=== PATIENT | female | born 1930 | race African-American/Black ===

== ENCOUNTER 2017-03-11 15:56 | Emergency (ER) | payer MEDICARE, MEDICAID ==
--- NOTE | 2017-03-11 16:20 | ER Document Report ---
ED General - General Information source: Patient TRAVEL OUTSIDE OF THE [place] IN LAST 30 DAYS: No - HPI Onset: Just prior to arrival Onset/Duration: Sudden Quality of pain: No pain Severity: None Pain Level: Denies Associated symptoms: Other - See above Exacerbated by: Denies Relieved by: Denies Similar symptoms previously: No Recently seen / treated by doctor: No <GREGORIO JOHNSTON - Last Filed: 03/11/17 17:48> <ELIZABETH GARCIA - Last Filed: 03/11/17 20:45> - General Stated Complaint: ALTERED MENTAL STATUS Time Seen by Provider: 03/11/17 16:09 Notes: 87-year-old female that comes from the [facility] facility, DNR/DNI, who presents today with a 3 minute witnessed episode of change in mental status. Patient does have baseline dementia and is normally oriented only to person. There is been no report of obvious headaches, chest pain, abdominal pain, nausea, vomiting, fevers, or pain with urination. Patient is sitting up currently smiling denying any pain to any location. Patient is at baseline mental status according to my phone call with Maida alba nurse and with the EMS personnel. (GREGORIO JOHNSTON) - Related Data Allergies/Adverse Reactions: No Known Allergies Allergy (Verified 01/06/16 11:32) Past Medical History - General Information source: Patient - Social History Smoking Status: Unknown if Ever Smoked Cigarette use (# per day): No Chew tobacco use (# tins/day): No Smoking Education Provided: No Frequency of alcohol use: None Drug Abuse: None Family History: None - Past Medical History Cardiac Medical History: Reports: Hx Hypertension Neurological Medical History: Denies: Hx Seizures Musculoskeltal Medical History: Reports Hx Arthritis Psychiatric Medical History: Reports: Hx Dementia Past Surgical History: Denies: Hx Hysterectomy - Immunizations Hx Diphtheria, Pertussis, Tetanus Vaccination: - unknown <GREGORIO JOHNSTON - Last Filed: 03/11/17 17:48> Review of Systems - Review of Systems Constitutional: denies: Fever Cardiovascular: denies: Chest pain, Palpitations Respiratory: denies: Short of breath Gastrointestinal: denies: Abdominal pain, Vomiting Genitourinary: denies: Dysuria Musculoskeletal: denies: Leg swelling Skin: denies: Rash Neurological/Psychological: Other - no slurred speech -: Yes All other systems reviewed and negative <GREGORIO JOHNSTON - Last Filed: 03/11/17 17:48> Physical Exam - Vital signs Interpretation: Normal <GREGORIO JOHNSTON - Last Filed: 03/11/17 17:48> <ELIZABETH GARCIA - Last Filed: 03/11/17 20:45> - Vital signs Vitals: Pulse Ox 98 03/11/17 16:20 Notes: Reviewed vital signs and nursing note as charted by RN. CONSTITUTIONAL: Alert and oriented only to person. Well-appearing; well- nourished HEAD: Normocephalic; atraumatic EYES: PERRL; extraocular motions intact NECK: Supple without meningismus; no carotid bruits; non-tender; no cervical lymphadenopathy, no masses CARD: Regular rate and rhythm; no murmurs RESP: Normal chest excursion without splinting or tachypnea; breath sounds clear and equal bilaterally; no wheezes, no rhonchi, no rales ABD/GI: Normal bowel sounds; non-distended; soft, non-tender; no abdominal bruits or palpable masses BACK: The back appears normal and is non-tender to palpation, there is no CVA tenderness EXT: Normal ROM in all joints; non-tender to palpation; no cyanosis, no effusions, no edema SKIN: Normal color for age and race; warm; dry; good turgor; capillary refill < 2 seconds; no acute lesions noted NEURO: CN II through XII are intact. 5 out of 5 bilateral upper and lower extremity strength or sensation intact to light touch PSYCH: The patient's mood and manner are appropriate. Grooming and personal hygiene are appropriate. (GREGORIO JOHNSTON) Course - Laboratory Result Diagrams: 03/11/17 16:33 03/11/17 16:33 <GREGORIO JOHNSTON - Last Filed: 03/11/17 17:48> - Laboratory Result Diagrams: 03/11/17 16:33 03/11/17 18:19 - Diagnostic Test Radiology reviewed: Image reviewed, Reports reviewed - EKG Interpretation by Pr EKG shows normal: Sinus rhythm, [place], Intervals, QRS Complexes <ELIZABETH GARCIA - Last Filed: 03/11/17 20:45> - Re-evaluation Re-evalutation: 03/11/17 16:24 Given the above history and physical examination, in this very pleasant but disoriented patient, currently with no pain, no focal neurological deficits, with stable vital signs, I will order a CT scan of the head, urinalysis by catheterization, and a cardiac panel. If patient continues to look excellent and have no complaints, and the workup is unremarkable, I believe it is reasonable to discharge this patient back to the facility with strict return precautions and follow-up with the attending at that location. 03/11/17 17:31 EKG shows a heart rate of 90, normal sinus rhythm, possibly ectopic atrial pacemaker, LVH, no obvious ST elevation or depression, flattening T waves laterally. PACs present. Old EKG from 2016 shows less LVH, otherwise relatively unchanged. 03/11/17 17:48 CT scan of the head shows no acute abnormality. Chest x-ray shows normal heart, normal mediastinum, no fractures, normal lung cyr, no pneumothorax. (GREGORIO JOHNSTON) 03/11/17 18:36 Patient is noted to have a UTI, will be started on antibiotics cultures pending 03/11/17 20:44 Troponins have been trended out and have actually decreased. Patient is otherwise stable for discharge, I spoke with family member and they are happy with discharge home After performing a Medical Screening Examination, I estimate there is LOW risk for INTRACRANIAL HEMORRHAGE, ISCHEMIC CVA, MALIGNANT DYSRHYTHMIA, ACUTE CORONARY SYNDROME, MENINGITIS, PULMONARY EMBOLISM, or SEPSIS thus I consider the discharge disposition reasonable. I have reevaluated this patient multiple times and no significant life threatening changes are noted. The patient and I have discussed the diagnosis and risks, and we agree with discharging home with close follow-up with the understanding that symptoms and presentations can change. We also discussed returning to the Emergency Department immediately if new or worsening symptoms occur. We have discussed the symptoms which are most concerning (e.g., changing or worsening pain, weakness, vomiting, fever) that necessitate immediate return. (ELIZABETH GARCIA) - Vital Signs Vital signs: Temp Pulse Resp BP Pulse Ox 20 169/95 H 97 03/11/17 20:01 03/11/17 20:01 03/11/17 20:01 - Laboratory Laboratory results interpreted by me: 03/11/17 03/11/17 03/11/17 16:33 17:40 18:19 RDW 14.4 H Plt Count 125 L Sodium 145.4 H Potassium 5.1 H Carbon Dioxide 35 H BUN 33 H Creatinine 1.65 H Est GFR ( Amer) 36 L Est GFR (Non-Af Amer) 29 L Calcium 10.4 H Urine Nitrite POSITIVE H Discharge <GREGORIO JOHNSTON - Last Filed: 03/11/17 17:48> <ELIZABETH GARCIA - Last Filed: 03/11/17 20:45> - Discharge Clinical Impression: Weakness Condition: Stable Disposition: HOME, SELF-CARE Instructions: Weakness ([facility]) Referrals: LORNA TORRES MD [Primary Care Provider] - Follow up tomorrow
[2017-03-11 16:45] LABS: ABSOLUTE EOSINOPHILS # (AUTO) 0.1 10^3/uL (0.0-0.6); ABSOLUTE LYMPHOCYTES (AUTO) 1.4 10^3/uL (0.5-4.7); ABSOLUTE MONOCYTES (AUTO) 0.6 10^3/uL (0.1-1.4); ABSOLUTE NEUT (AUTO) 3.2 10^3/uL (1.7-8.2); BASOPHILS % (AUTO) 0.8 % (0-2); EOSINOPHILS % (AUTO) 2.6 % (0-6); HEMATOCRIT 38.7 % (36.0-47.0); HEMOGLOBIN 12.7 g/dL (12.0-15.5); HGB HCT DIFFERENCE -0.6; MEAN CORPUSCULAR HEMOGLOBIN 29.9 pg (27.0-33.4); MEAN CORPUSCULAR HGB CONC 32.9 g/dL (32.0-36.0); MEAN CORPUSCULAR VOLUME 91 fl (80-97); MONOCYTES % (AUTO) 11.7 % (3-13); RED BLOOD COUNT 4.25 10^6/uL (3.72-5.28); RED CELL DISTRIBUTION WIDTH 14.4 % (11.5-14.0); SEGMENTED NEUTROPHILS % (AUTO) 58.9 % (42-78); WHITE BLOOD COUNT 5.4 10^3/uL (4.0-10.5)
--- NOTE | 2017-03-11 17:25 | RADIOLOGY REPORT (SQ) ---
EXAM DESCRIPTION: CT HEAD WITHOUT COMPLETED DATE/TIME: 03/11/2017 5:09 pm REASON FOR STUDY: 17, Transient change in mental status COMPARISON: 01/09/2016 TECHNIQUE: Axial images acquired through the brain without intravenous contrast. Images reviewed wi th bone, brain and subdural windows. Images stored on PACS. All CT scanners at this facility use dose modulation, iterative reconstruction, and/or weight based d osing when appropriate to reduce radiation dose to as low as reasonably achievable (ALARA). [facility]: Dose Right [facility]: CareDose [facility]: Dose Right [facility]: Teradose 4D [facility]: TELOS RADIATION DOSE: Up-to-date CT equipment and radiation dose reduction techniques were employed. CTDIv ol: 64.6 mGy. DLP: 1034 mGy-cm.mGy. LIMITATIONS: None. FINDINGS: VENTRICLES: Prominent. CEREBRUM: No masses. No hemorrhage. No midline shift. Areas of low density in the white matter mos t likely due to chronic micro-vascular ischemic change. No evidence for acute infarction. CEREBELLUM: No masses. No hemorrhage. No alteration of density. No evidence for acute infarction. EXTRAAXIAL SPACES: Age-related involutional change. No fluid collections. No masses. ORBITS AND GLOBE: No intra- or extraconal masses. Normal contour of globe without masses. CALVARIUM: No fracture. PARANASAL SINUSES: No fluid or mucosal thickening. SOFT TISSUES: No mass or hematoma. OTHER: No other significant finding. IMPRESSION: NO ACUTE INTRACRANIAL PROCESS. NO SIGNIFICANT CHANGE FROM PRIOR STUDY. TECHNICAL DOCUMENTATION: JOB ID: [id number] Quality ID # [id number]: Final reports with documentation of one or more dose reduction techniques (e.g., Au tomated exposure control, adjustment of the mA and/or kV according to patient size, use of iterative reconstruction technique) 2010 [employer]- All Rights Reserved
--- NOTE | 2017-03-11 17:36 | RADIOLOGY REPORT (SQ) ---
EXAM DESCRIPTION: CHEST PA/LAT COMPLETED DATE/TIME: 03/11/2017 5:28 pm REASON FOR STUDY: 17, m[facility] COMPARISON: 01/13/2016 NUMBER OF VIEWS: Two view. TECHNIQUE: Frontal and lateral radiographic views of the chest acquired. LIMITATIONS: None. FINDINGS: LUNGS AND PLEURA: Stable volume loss left hemithorax with presumed scarring left lung apex . No new opacities, masses or pneumothorax. No pleural effusion. Attenuated blood vessels and flatte annalee armond-diaphragms. MEDIASTINUM AND HILAR STRUCTURES: No masses. No contour abnormalities. HEART AND VASCULAR STRUCTURES: Heart stable in size and contour. No evidence for failure. BONES: No acute findings. HARDWARE: None in the chest. OTHER: No other significant finding. IMPRESSION: NO ACUTE CARDIOPULMONARY PROCESS OR SIGNIFICANT CHANGE FROM PRIOR STUDY. TECHNICAL DOCUMENTATION: JOB ID: [id number] [employer]- All Rights Reserved
[2017-03-11 18:09] LABS: APPEARANCE,URINE CLEAR; BILIRUBIN,URINE NEGATIVE (NEGATIVE); GLUCOSE, URINE NEGATIVE (NEGATIVE); KETONES,URINE NEGATIVE (NEGATIVE); LEUKOCYTE ESTERASE,URINE NEGATIVE (NEGATIVE); NITRITE,URINE POSITIVE (NEGATIVE); PROTEIN,URINE NEGATIVE (NEGATIVE); URINE SPECIFIC GRAVITY 1.005; UROBILINOGEN,URINE NEGATIVE mg/dL (<2.0)
[2017-03-11] MEDS ORDERED: CEPHALEXIN 500 MG CAPSULE PO ONE (18:13)
[2017-03-11 18:50] LABS: ANION GAP 10 (5-19); BLOOD UREA NITROGEN 33 mg/dL (7-20); CALCIUM 10.4 mg/dL (8.4-10.2); CARBON DIOXIDE 35 mmol/L (22-30); CHLORIDE 100 mmol/L (98-107); CREATININE RESULT 1.65 mg/dL (0.52-1.25); GLUCOSE 109 mg/dL (75-110); POTASSIUM 5.1 mmol/L (3.6-5.0); SODIUM 145.4 mmol/L (137-145)
[2017-03-11 21:09] VITALS: BP 113/85
--- NOTE | 2017-03-12 00:09 | EKG REPORT ---
SEVERITY:- ABNORMAL ECG - PRECORDIAL LEADS MISPLACED SINUS RHYTHM ATRIAL PREMATURE COMPLEX LEFT ATRIAL ABNORMALITY LEFT VENTRICULAR HYPERTROPHY : Confirmed by: Chance Vee 12-Mar-2017 00:08:58
== END 2017-03-11 21:25 | disposition home or self-care (01) ==
LOC: ER 15:56
DX: R53.1 Weakness (principal); N39.0 Urinary tract infection, site not specified; F03.90 Unspecified dementia, unspecified severity, without behavioral disturbance, psychotic disturbance, mood disturbance, and anxiety; I10 Essential (primary) hypertension; I51.7 Cardiomegaly; I49.1 Atrial premature depolarization; Z66 Do not resuscitate
CPT/HCPCS: 93005; 99285; 51701; 36415; 87086; 85025; 87088; 80048; 81001; 84484; 87186; 71020; 70450; 93010; A9270

== ENCOUNTER 2017-07-23 20:45 | Inpatient (IN) | payer MEDICARE, MEDICAID ==
[2017-07-23] MEDS ORDERED: NORMAL SALINE 1000 ML 1,000 ML IV ONE (20:56)
--- NOTE | 2017-07-23 21:17 | ER Document Report ---
ED General - General Stated Complaint: FEVER Time Seen by Provider: 07/23/17 20:54 Cannot obtain history due to: Dementia Notes: Patient is an 87-year-old female who [facility] the local [facility] with concerns of fever and shortness of breath. The patient herself is severely demented, unable to provide meaningful history. Patient apparently had a recorded temperature of 103.6F. Tylenol was administered in route by EMS. Patient does have a history of similar presentations in the past secondary to pneumonia. TRAVEL OUTSIDE OF THE [place] IN LAST 30 DAYS: No - Related Data Allergies/Adverse Reactions: No Known Allergies Allergy (Verified 01/06/16 11:32) Home Medications: Current Home Medications Mirtazapine [Remeron] 7.5 mg PO QHS 07/23/17 [History] Omeprazole Magnesium [Prilosec Otc] 20 mg PO DAILY 07/23/17 [History] Past Medical History - General Information source: Transfer Record, [facility] Records, Outside Facility Records Cannot obtain history due to: Dementia - Social History Smoking Status: Unknown if Ever Smoked Lives with: Skilled Nursing Family History: Reviewed & Not Pertinent - Past Medical History Cardiac Medical History: Reports: Hx Hypertension Neurological Medical History: Denies: Hx Seizures Musculoskeltal Medical History: Reports Hx Arthritis Psychiatric Medical History: Reports: Hx Dementia Past Surgical History: Denies: Hx Hysterectomy - Immunizations Hx Diphtheria, Pertussis, Tetanus Vaccination: - unknown Review of Systems - Review of Systems -: Yes ROS unobtainable due to patient's medical condition Physical Exam - Vital signs Vitals: Resp Pulse Ox 25 H 99 07/23/17 21:04 07/23/17 21:04 Interpretation: Tachypneic Notes: PHYSICAL EXAMINATION: GENERAL: Frail, elderly, in no distress. HEAD: Atraumatic, normocephalic. EYES: Pupils equal round and reactive to light, extraocular movements intact, sclera anicteric, conjunctiva are normal. ENT: nares patent, oropharynx clear without exudates. Moderately dry mucous membranes. NECK: Normal range of motion, supple without lymphadenopathy LUNGS: Diffusely diminished breath on the left versus the right. No distress or tachypnea HEART: Regular rate and rhythm without murmurs ABDOMEN: Soft, nontender, normoactive bowel sounds. No guarding, no rebound. No masses appreciated. EXTREMITIES: Normal range of motion, no pitting or edema. No cyanosis. NEUROLOGICAL: No focal neurological deficits. Moves all extremities spontaneously and on command. PSYCH: Alert but not oriented to person, place or year. SKIN: Warm, Dry, normal turgor, no rashes or lesions noted. Course - Re-evaluation Re-evalutation: 07/23/17 21:48 Patient presents with fever without any localizing symptoms. She is severely demented, unable to provide any history. She is overall nontoxic in appearance. Chest x-ray seemed to show left-sided pneumonia. Labs are otherwise unremarkable without any evidence of urinary tract infection. Patient is however hypoxic saturating 90% on room air without a baseline oxygen requirement. This further supports the diagnosis of a pneumonia. I have begun empiric treatment for this diagnosis with vancomycin, Zosyn given her healthcare setting - Vital Signs Vital signs: Temp Pulse Resp BP Pulse Ox 99.7 F 89 18 113/64 100 07/23/17 21:35 07/23/17 21:35 07/24/17 01:29 07/24/17 01:29 07/24/17 01:28 - Laboratory Result Diagrams: 07/23/17 21:01 07/23/17 21:01 Laboratory results interpreted by me: 07/23/17 07/23/17 21:01 21:01 WBC 14.1 H Hgb 11.1 L Hct 34.9 L MCHC 31.9 L Seg Neutrophils % 85.4 H Lymphocytes % 6.4 L Absolute Neutrophils 12.0 H Sodium 145.5 H Carbon Dioxide 32 H BUN 21 H Creatinine 1.45 H Est GFR ( Amer) 41 L Est GFR (Non-Af Amer) 34 L Glucose 137 H - Diagnostic Test Radiology reviewed: Image reviewed, Reports reviewed Radiology results interpreted by me: 07/24/17 00:10 Chest x-ray: Patient appears to have a left-sided pneumonia relative to prior xray Discharge - Discharge Clinical Impression: Hypoxemia Sepsis Qualifiers: Sepsis type: sepsis due to unspecified organism Qualified Code(s): A41.9 - Sepsis, unspecified organism Pneumonia Qualifiers: Pneumonia type: due to unspecified organism Laterality: left Lung location: unspecified part of lung Qualified Code(s): J18.9 - Pneumonia, unspecified organism Condition: Fair Disposition: ADMITTED INPATIENT Admitting Provider: [facility] Unit Admitted: Telemetry
[2017-07-23 21:22] LABS: ABSOLUTE LYMPHOCYTES (AUTO) 0.9 10^3/uL (0.5-4.7); ABSOLUTE MONOCYTES (AUTO) 1.1 10^3/uL (0.1-1.4); BASOPHILS % (AUTO) 0.2 % (0-2); HEMATOCRIT 34.9 % (36.0-47.0); HEMOGLOBIN 11.1 g/dL (12.0-15.5); LYMPHOCYTES % (AUTO) 6.4 % (13-45); MEAN CORPUSCULAR HEMOGLOBIN 28.7 pg (27.0-33.4); MEAN CORPUSCULAR HGB CONC 31.9 g/dL (32.0-36.0); MEAN CORPUSCULAR VOLUME 90 fl (80-97); PLATELET COUNT 180 10^3/uL (150-450); RED BLOOD COUNT 3.87 10^6/uL (3.72-5.28); SEGMENTED NEUTROPHILS % (AUTO) 85.4 % (42-78); TOTAL CELLS COUNTED % (AUTO) 100 %; WHITE BLOOD COUNT 14.1 10^3/uL (4.0-10.5)
[2017-07-23 21:36] LABS: APPEARANCE,URINE SLIGHTLY-CLOUDY; BILIRUBIN,URINE NEGATIVE (NEGATIVE); COLOR,URINE YELLOW; GLUCOSE, URINE NEGATIVE (NEGATIVE); KETONES,URINE NEGATIVE (NEGATIVE); LEUKOCYTE ESTERASE,URINE NEGATIVE (NEGATIVE); NITRITE,URINE NEGATIVE (NEGATIVE); PROTEIN,URINE NEGATIVE (NEGATIVE); UROBILINOGEN,URINE NEGATIVE mg/dL (<2.0)
[2017-07-23 21:40] LABS: ALANINE AMINOTRANSFERASE 18 U/L (9-52); ALBUMIN 3.5 g/dL (3.5-5.0); ALKALINE PHOSPHATASE 85 U/L (38-126); ANION GAP 10 (5-19); ASPARTATE AMINO TRANSFERASE 16 U/L (14-36); BILIRUBIN,DIRECT 0.2 mg/dL (0.0-0.4); BILIRUBIN,TOTAL 0.6 mg/dL (0.2-1.3); BLOOD UREA NITROGEN 21 mg/dL (7-20); CALCIUM 9.5 mg/dL (8.4-10.2); CARBON DIOXIDE 32 mmol/L (22-30); CHLORIDE 104 mmol/L (98-107); GLUCOSE 137 mg/dL (75-110); POTASSIUM 4.4 mmol/L (3.6-5.0); SODIUM 145.5 mmol/L (137-145); TOTAL PROTEIN 6.8 g/dL (6.3-8.2)
[2017-07-23 21:51] LABS: A TYPE INFLUENZA AG NEGATIVE (NEGATIVE); B INFLUENZA AG NEGATIVE (NEGATIVE)
[2017-07-23] MEDS ORDERED: VANCOMYCIN HCL INJ 1000 MG VIAL IV ONE (21:51)
[2017-07-23] MEDS ORDERED: PIPERACILLIN/TAZOBACTAM 3.375 GM VIAL IV ONE (21:51)
--- NOTE | 2017-07-23 22:11 | RADIOLOGY REPORT (SQ) ---
EXAM DESCRIPTION: CHEST SINGLE VIEW COMPLETED DATE/TIME: 07/23/2017 9:44 pm REASON FOR STUDY: fever COMPARISON: 03/11/2017 EXAM PARAMETERS: NUMBER OF VIEWS: One view. TECHNIQUE: Single frontal radiographic view of the chest acquired. RADIATION DOSE: NA LIMITATIONS: None. FINDINGS: LUNGS AND PLEURA: Re- demonstration of left hemithorax volume loss with elevation of the l eft hemidiaphragm. Left apical pleural thickening, stable. No new focal consolidation. No pleural effusion. MEDIASTINUM AND HILAR STRUCTURES: No masses. Contour normal. HEART AND VASCULAR STRUCTURES: Stable cardiomediastinal silhouette. No evidence for failure. BONES: No acute findings. HARDWARE: None in the chest. OTHER: No other significant finding. IMPRESSION: Stable radiographic appearance of the chest. No evidence of acute pulmonary process. TECHNICAL DOCUMENTATION: JOB ID: [id number] [employer]- All Rights Reserved
[2017-07-24] MEDS ORDERED: NORMAL SALINE 1000 ML 1,000 ML IV ONE (00:08)
[2017-07-24] MEDS ORDERED: IPRATROPIUM/ALBUTEROL 0.5-2.5 MG/3 ML AMPUL NEB PRN (00:12)
[2017-07-24] MEDS ORDERED: GUAIFENESIN SYRP 200 MG/10 ML UDC PO PRN (00:12)
[2017-07-24] MEDS: NORMAL SALINE 1000 ML 1,000 ML IV PRN ×3 (00:38→20:56)
[2017-07-24] MEDS: IPRATROPIUM/ALBUTEROL 0.5-2.5 MG/3 ML AMPUL NEB SCH ×4 (02:00→20:26)
[2017-07-24 05:05] LABS: ANION GAP 9 (5-19); BLOOD UREA NITROGEN 23 mg/dL (7-20); CALCIUM 8.7 mg/dL (8.4-10.2); CARBON DIOXIDE 26 mmol/L (22-30); CHLORIDE 111 mmol/L (98-107); GLUCOSE 109 mg/dL (75-110)
[2017-07-24 05:12] LABS: POTASSIUM 5.4 mmol/L (3.6-5.0)
[2017-07-24] MEDS: HEPARIN SOD (PORCINE) 5,000 UNIT/ML 1 ML SYRINGE SUBCUT SCH ×3 (05:50→22:50)
[2017-07-24] MEDS ORDERED: INFLUENZA ADLT QUAD (36MOS+) 2017-18 VAC 0.5 ML SYR IM PRN (05:55)
[2017-07-24] MEDS ORDERED: NORMAL SALINE 1000 ML 1,000 ML IV PRN (06:00)
[2017-07-24] MEDS ORDERED: LACTULOSE SYRUP 20 GM/30 ML UDCUP PO ONE (06:00)
--- NOTE | 2017-07-24 06:07 | PDOC H&P ---
History of Present Illness Admission Date/PCP: 07/24/17 00:30 OCTAVIO LARSEN MD Patient complains of: Fever and shortness of breath History of Present Illness: GEE ATWOOD is a 87 year old female who is a long-term residential resident with advanced dementia and hypertension unable to provide history. She is referred to the emergency room after found short of breath with a temperature of 103.6. In the emergency room she is nonverbal but her workup reveals a left-sided infiltrate suggestive of pneumonia, leukocytosis and hypotension. She started on empiric antibiotics and for the hospitalist for admission Past Medical History Cardiac Medical History: Reports: Hypertension Neurological Medical History: Denies: Seizures Musculoskeltal Medical History: Reports: Arthritis Psychiatric Medical History: Reports: Dementia Denies: Depression Past Surgical History Past Surgical History: Denies: Hysterectomy Social History Information Source: [facility] Records Lives with: [facility] Smoking Status: Unknown if Ever Smoked Frequency of Alcohol Use: None Hx Recreational Drug Use: No Hx Prescription Drug Abuse: No - Advance Directive Resuscitation Status: Do Not Resuscitate Family History Family History: Other - Unobtainable Parental Family History Reviewed: No - Unobtainable Children Family History Reviewed: No - Unobtainable Sibling(s) Family History Reviewed.: No Medication/Allergy Home Medications: Acetaminophen [Tylenol 325 mg Tablet] 650 mg PO Q4HP PRN #0 tablet 01/14/16 Furosemide [Lasix 40 mg Tablet] 40 mg PO DAILY #0 tablet 01/14/16 Memantine HCl [Namenda 10 mg Tablet] 10 mg PO DAILY #0 tablet 01/14/16 Multivitamins W-Iron [Flintstones Chewable Multivit W/Fe Tab] 2 tab PO DAILY #0 tab.chew 01/14/16 Potassium Chloride [Kaon-Cl 20 Meq/15 ml Udcup] 20 meq PO DAILY #0 udc 01/14/16 Mirtazapine [Remeron] 7.5 mg PO QHS 07/23/17 Omeprazole Magnesium [Prilosec Otc] 20 mg PO DAILY 07/23/17 Allergies/Adverse Reactions: No Known Allergies Allergy (Verified 01/06/16 11:32) Review of Systems ROS unobtainable: Due to mental status - Demented Physical Exam Vital Signs: Temp Pulse Resp BP Pulse Ox 97.9 F 76 16 100/50 L 100 07/24/17 05:23 07/24/17 05:27 07/24/17 05:23 07/24/17 05:23 07/24/17 05:23 Intake & Output 07/22/17 07/23/17 07/24/17 11:59 11:59 11:59 Weight 52.16 kg General appearance: PRESENT: mild distress, thin. ABSENT: cooperative Head exam: PRESENT: atraumatic, normocephalic Eye exam: PRESENT: conjunctiva pink, EOMI, PERRLA. ABSENT: scleral icterus Ear exam: PRESENT: normal external ear exam Mouth exam: PRESENT: moist, tongue midline Neck exam: ABSENT: carotid bruit, JVD, lymphadenopathy, thyromegaly Respiratory exam: PRESENT: accessory muscle use, prolonged expiratory phas, rales, retraction, rhonchi, tachypnea Cardiovascular exam: PRESENT: RRR. ABSENT: diastolic murmur, rubs, systolic murmur Pulses: PRESENT: normal dorsalis pedis pul Vascular exam: PRESENT: normal capillary refill GI/Abdominal exam: PRESENT: normal bowel sounds, soft. ABSENT: distended, guarding, mass, organolmegaly, rebound, tenderness Rectal exam: PRESENT: deferred Extremities exam: PRESENT: full ROM. ABSENT: calf tenderness, clubbing, pedal edema Neurological exam: PRESENT: altered Psychiatric exam: PRESENT: flat affect Skin exam: PRESENT: dry, intact, warm. ABSENT: cyanosis, rash Results Laboratory Results: 07/24/17 04:19 07/24/17 04:19 07/24/17 07/24/17 04:19 04:19 WBC Cancelled RBC Cancelled Hgb Cancelled Hct Cancelled MCV Cancelled MCH Cancelled MCHC Cancelled RDW Cancelled Plt Count Cancelled Seg Neutrophils % Cancelled Lymphocytes % Cancelled Monocytes % Cancelled Eosinophils % Cancelled Basophils % Cancelled Absolute Neutrophils Cancelled Absolute Lymphocytes Cancelled Absolute Monocytes Cancelled Absolute Eosinophils Cancelled Absolute Basophils Cancelled Sodium 146.0 H Potassium 5.4 H D Chloride 111 H Carbon Dioxide 26 Anion Gap 9 BUN 23 H Creatinine 1.41 H Est GFR ( Amer) 43 L Est GFR (Non-Af Amer) 35 L Glucose 109 Calcium 8.7 Impressions: Chest X-Ray 07/23/17 20:54 IMPRESSION: Stable radiographic appearance of the chest. No evidence of acute pulmonary process. Assessment & Plan - Diagnosis (1) Pneumonia Qualifiers: Pneumonia type: due to unspecified organism Laterality: left Lung location: unspecified part of lung Qualified Code(s): J18.9 - Pneumonia, unspecified organism Is this a current diagnosis for this admission?: Yes Plan: IMCU admission, pneumonia care set, albuterol and Atrovent empiric antibiotics and supplemental oxygen. Follow-up CBC and blood culture (2) Sepsis Qualifiers: Sepsis type: sepsis due to unspecified organism Qualified Code(s): A41.9 - Sepsis, unspecified organism Is this a current diagnosis for this admission?: Yes Plan: Secondary to #1 IV fluid challenge. Patient not a candidate for pressors given advanced dementia and DNR status. (3) Hyperkalemia Is this a current diagnosis for this admission?: Yes Plan: Trial lactulose follow-up chemistry (4) Hypoxemia Is this a current diagnosis for this admission?: Yes Plan: Supplemental oxygen, albuterol and Atrovent (5) Chronic kidney disease Is this a current diagnosis for this admission?: Yes Plan: Avoid nephrotoxic meds and doses reevaluate chemistry - Time Time Spent: 50 to 70 Minutes - Inpatient Certification Medical Necessity: Need Close Monitoring Due to Risk of Patient Decompensation
[2017-07-24] MEDS ORDERED: VANCOMYCIN HCL 0 MG in DEXTROSE 5%-WATER 250 ML IV NR (06:15)
[2017-07-24 06:54] LABS: HEMATOCRIT 33.6 % (36.0-47.0); HEMOGLOBIN 10.7 g/dL (12.0-15.5); MEAN CORPUSCULAR HEMOGLOBIN 28.9 pg (27.0-33.4); MEAN CORPUSCULAR HGB CONC 31.8 g/dL (32.0-36.0); MEAN CORPUSCULAR VOLUME 91 fl (80-97); PLATELET COUNT 149 10^3/uL (150-450); RED BLOOD COUNT 3.69 10^6/uL (3.72-5.28); RED CELL DISTRIBUTION WIDTH 14.1 % (11.5-14.0)
[2017-07-24 07:11] LABS: ABSOLUTE LYMPHOCYTES# (MANUAL) 1.5 10^3/uL (0.5-4.7); ABSOLUTE MONOCYTES # (MANUAL) 0.6 10^3/uL (0.1-1.4); ABSOLUTE NEUTROPHILS# (MANUAL) 11.9 10^3/uL (1.7-8.2); BAND NEUTROPHILS % (MANUAL) 2 % (3-5); BASOPHILS % (MANUAL) 0 % (0-2); EOSINOPHILS % (MANUAL) 0 % (0-6); LYMPHOCYTES % (MANUAL) 11 % (13-45); MONOCYTES % (MANUAL) 4 % (3-13); SEGMENTED NEUTROPHILS % (MAN) 83 % (42-78); TOTAL CELLS COUNTED 100
[2017-07-24 07:15] LABS: ANISOCYTOSIS SLIGHT; OVALOCYTES SLIGHT; PLATELET COMMENT ADEQUATE; STOMATOCYTES 1+; TOXIC GRANULATION SLIGHT; TOXIC VACUOLATION PRESENT
[2017-07-24] MEDS ORDERED: CEFEPIME 2 GM/D5W RTU 2 GM/50 ML RTUPB IV SCH (10:00)
[2017-07-24] MEDS ORDERED: CEFEPIME HCL 2 GM in DEXTROSE 5%-WATER 50 ML IV SCH (10:00)
--- NOTE | 2017-07-24 10:17 | PDOC PROGRESS REPORT ---
Subjective Progress Note for:: 07/24/17 Subjective:: Patient is confused but denies any complaints. Reason For Visit: PNEUMONIA Physical Exam Vital Signs: Temp Pulse Resp BP Pulse Ox 97.6 F 80 18 106/52 L 97 07/24/17 07:04 07/24/17 08:00 07/24/17 08:00 07/24/17 07:04 07/24/17 08:00 Intake & Output 07/23/17 07/24/17 07/25/17 06:59 06:59 06:59 Intake Total 400 Balance 400 Weight 52.16 kg General appearance: PRESENT: no acute distress Eye exam: PRESENT: conjunctiva pink. ABSENT: scleral icterus Mouth exam: PRESENT: moist, tongue midline Neck exam: ABSENT: JVD Respiratory exam: PRESENT: rhonchi. ABSENT: rales, wheezes Cardiovascular exam: PRESENT: RRR. ABSENT: diastolic murmur, rubs, systolic murmur GI/Abdominal exam: PRESENT: normal bowel sounds, soft. ABSENT: distended, guarding, mass, organolmegaly, rebound, tenderness Extremities exam: ABSENT: calf tenderness, clubbing, pedal edema Neurological exam: PRESENT: oriented to person. ABSENT: oriented to place, oriented to time, oriented to situation Psychiatric exam: PRESENT: flat affect Skin exam: PRESENT: dry, intact, warm. ABSENT: cyanosis, rash Results Laboratory Results: 07/24/17 06:09 07/24/17 04:19 07/24/17 07/24/17 07/24/17 04:19 04:19 06:09 WBC Cancelled 14.0 H RBC Cancelled 3.69 L Hgb Cancelled 10.7 L Hct Cancelled 33.6 L MCV Cancelled 91 MCH Cancelled 28.9 MCHC Cancelled 31.8 L RDW Cancelled 14.1 H Plt Count Cancelled 149 L Seg Neutrophils % Cancelled Not Reportable Lymphocytes % Cancelled Not Reportable Monocytes % Cancelled Not Reportable Eosinophils % Cancelled Not Reportable Basophils % Cancelled Not Reportable Absolute Neutrophils Cancelled Not Reportable Absolute Lymphocytes Cancelled Not Reportable Absolute Monocytes Cancelled Not Reportable Absolute Eosinophils Cancelled Not Reportable Absolute Basophils Cancelled Not Reportable Sodium 146.0 H Potassium 5.4 H D Chloride 111 H Carbon Dioxide 26 Anion Gap 9 BUN 23 H Creatinine 1.41 H Est GFR ( Amer) 43 L Est GFR (Non-Af Amer) 35 L Glucose 109 Calcium 8.7 Impressions: Chest X-Ray 07/23/17 20:54 IMPRESSION: Stable radiographic appearance of the chest. No evidence of acute pulmonary process. Assessment & Plan - Diagnosis (1) Sepsis Qualifiers: Sepsis type: sepsis due to unspecified organism Qualified Code(s): A41.9 - Sepsis, unspecified organism Is this a current diagnosis for this admission?: Yes Plan: Patient presented with hypotension tachycardia and fever. The hypotension has improved with IV fluids. Patient also has had improvement in her fever. There was concern that she may have pneumonia given the clinical findings, however chest x-ray did not show any obvious pneumonia. Will continue with the vancomycin and cefepime as she is a [facility] resident. (2) Pneumonia Qualifiers: Pneumonia type: due to unspecified organism Laterality: left Lung location: unspecified part of lung Qualified Code(s): J18.9 - Pneumonia, unspecified organism Is this a current diagnosis for this admission?: Yes Plan: Clinically there was concern that she had a pneumonia given her cough and fever and coarse rhonchi. Chest x-ray however did not show pneumonia. It is not clear whether all of her symptoms are related to pulmonary process or not. We will continue with vancomycin and cefepime. (3) Chronic kidney disease Is this a current diagnosis for this admission?: Yes Plan: Her renal function is at its baseline. (4) Hyperkalemia Is this a current diagnosis for this admission?: Yes Plan: We will continue to monitor. (5) Hypoxemia Is this a current diagnosis for this admission?: Yes Plan: Resolved. - Time Time Spent with patient: 25-34 minutes - Inpatient Certification Medical Necessity: Need Close Monitoring Due to Risk of Patient Decompensation, Need for IV Antibiotics
[2017-07-24] MEDS: CEFEPIME 1 GM/D5W RTU 1 GM/50 ML RTUPB IV SCH (11:21)
[2017-07-24] MEDS: GUAIFENESIN 600 MG TABLET.SA PO SCH ×2 (11:21→22:50)
[2017-07-24] MEDS: ACETAMINOPHEN 325 MG TABLET PO PRN (20:07)
[2017-07-24] MEDS: MIRTAZAPINE 15 MG TABLET PO SCH (22:50)
[2017-07-25] MEDS: IPRATROPIUM/ALBUTEROL 0.5-2.5 MG/3 ML AMPUL NEB SCH ×4 (01:25→21:02)
[2017-07-25] MEDS: NORMAL SALINE 1000 ML 1,000 ML IV PRN ×3 (04:47→16:32)
[2017-07-25] MEDS: HEPARIN SOD (PORCINE) 5,000 UNIT/ML 1 ML SYRINGE SUBCUT SCH ×3 (05:00→23:36)
[2017-07-25 05:02] LABS: ABSOLUTE BASOPHILS # (AUTO) 0.1 10^3/uL (0.0-0.2); ABSOLUTE LYMPHOCYTES (AUTO) 0.9 10^3/uL (0.5-4.7); ABSOLUTE MONOCYTES (AUTO) 1.2 10^3/uL (0.1-1.4); ABSOLUTE NEUT (AUTO) 10.7 10^3/uL (1.7-8.2); BASOPHILS % (AUTO) 0.6 % (0-2); EOSINOPHILS % (AUTO) 0.1 % (0-6); HEMATOCRIT 30.9 % (36.0-47.0); HEMOGLOBIN 9.7 g/dL (12.0-15.5); LYMPHOCYTES % (AUTO) 6.6 % (13-45); MEAN CORPUSCULAR HEMOGLOBIN 28.9 pg (27.0-33.4); MEAN CORPUSCULAR HGB CONC 31.5 g/dL (32.0-36.0); MEAN CORPUSCULAR VOLUME 92 fl (80-97); MONOCYTES % (AUTO) 9.2 % (3-13); PLATELET COUNT 128 10^3/uL (150-450); RED BLOOD COUNT 3.37 10^6/uL (3.72-5.28); RED CELL DISTRIBUTION WIDTH 14.2 % (11.5-14.0); SEGMENTED NEUTROPHILS % (AUTO) 83.5 % (42-78); TOTAL CELLS COUNTED % (AUTO) 100 %; WHITE BLOOD COUNT 12.8 10^3/uL (4.0-10.5)
[2017-07-25 05:16] LABS: ANION GAP 7 (5-19); BLOOD UREA NITROGEN 17 mg/dL (7-20); CALCIUM 8.6 mg/dL (8.4-10.2); CARBON DIOXIDE 27 mmol/L (22-30); CHLORIDE 112 mmol/L (98-107); GLUCOSE 104 mg/dL (75-110); POTASSIUM 4.5 mmol/L (3.6-5.0); SODIUM 145.8 mmol/L (137-145)
[2017-07-25] MEDS ORDERED: DEXTROSE 5% IV SCH (06:00)
[2017-07-25] MEDS ORDERED: WATER IV SCH (06:00)
[2017-07-25] MEDS ORDERED: VANCOMYCIN HCL IV SCH (06:00)
[2017-07-25] MEDS: CEFEPIME 1 GM/D5W RTU 1 GM/50 ML RTUPB IV SCH (08:51)
[2017-07-25] MEDS: GUAIFENESIN 600 MG TABLET.SA PO SCH ×2 (08:51→23:57)
[2017-07-25] MEDS: ACETAMINOPHEN 325 MG TABLET PO PRN (13:22)
--- NOTE | 2017-07-25 16:11 | PDOC PROGRESS REPORT ---
Subjective Progress Note for:: 07/25/17 Subjective:: Patient is confused but denies any complaints. Reason For Visit: PNEUMONIA Physical Exam Vital Signs: Temp Pulse Resp BP Pulse Ox 101.5 F H 100 24 H 147/70 H 97 07/25/17 13:20 07/25/17 14:00 07/25/17 13:37 07/25/17 13:20 07/25/17 13:37 Intake & Output 07/24/17 07/25/17 07/26/17 06:59 06:59 06:59 Intake Total 400 1600 200 Balance 400 1600 200 Weight 52.16 kg 55.3 kg General appearance: PRESENT: no acute distress Eye exam: PRESENT: conjunctiva pink. ABSENT: scleral icterus Ear exam: PRESENT: normal external ear exam Neck exam: ABSENT: JVD Respiratory exam: PRESENT: clear to auscultation antelmo. ABSENT: rales, rhonchi, wheezes Cardiovascular exam: PRESENT: RRR. ABSENT: diastolic murmur, rubs, systolic murmur GI/Abdominal exam: PRESENT: normal bowel sounds, soft. ABSENT: distended, guarding, mass, organolmegaly, rebound, tenderness Extremities exam: ABSENT: calf tenderness, clubbing, pedal edema Neurological exam: PRESENT: awake, oriented to person. ABSENT: oriented to place, oriented to time, oriented to situation Psychiatric exam: PRESENT: appropriate affect Skin exam: PRESENT: dry, intact, warm. ABSENT: cyanosis, rash Results Laboratory Results: 07/25/17 04:10 07/25/17 04:10 07/25/17 07/25/17 04:10 04:10 WBC 12.8 H RBC 3.37 L Hgb 9.7 L Hct 30.9 L MCV 92 MCH 28.9 MCHC 31.5 L RDW 14.2 H Plt Count 128 L Seg Neutrophils % 83.5 H Lymphocytes % 6.6 L Monocytes % 9.2 Eosinophils % 0.1 Basophils % 0.6 Absolute Neutrophils 10.7 H Absolute Lymphocytes 0.9 Absolute Monocytes 1.2 Absolute Eosinophils 0.0 Absolute Basophils 0.1 Sodium 145.8 H Potassium 4.5 Chloride 112 H Carbon Dioxide 27 Anion Gap 7 BUN 17 Creatinine 1.11 Est GFR ( Amer) 56 L Est GFR (Non-Af Amer) 46 L Glucose 104 Calcium 8.6 Impressions: Chest X-Ray 07/23/17 20:54 IMPRESSION: Stable radiographic appearance of the chest. No evidence of acute pulmonary process. Assessment & Plan - Diagnosis (1) Sepsis Qualifiers: Sepsis type: sepsis due to unspecified organism Qualified Code(s): A41.9 - Sepsis, unspecified organism Is this a current diagnosis for this admission?: Yes Plan: Patient presented with hypotension tachycardia and fever. The hypotension has improved with IV fluids. The patient initially was thought to possibly have pneumonia given that she had a cough however chest x-ray did not show an obvious pneumonia. Clinically the patient has no evidence for pneumonia today. She is growing gram-negative rods from her urine culture. This most likely is the source for her sepsis. We will stop the vancomycin and continue with the cefepime. She is a [facility] resident (2) Pneumonia Qualifiers: Pneumonia type: due to unspecified organism Laterality: left Lung location: unspecified part of lung Qualified Code(s): J18.9 - Pneumonia, unspecified organism Is this a current diagnosis for this admission?: Yes Plan: The patient does not have pneumonia (3) Chronic kidney disease Is this a current diagnosis for this admission?: Yes Plan: Her renal function is at its baseline. (4) Hyperkalemia Is this a current diagnosis for this admission?: Yes Plan: Resolved (5) Hypoxemia Is this a current diagnosis for this admission?: Yes Plan: Resolved. - Time Time Spent with patient: 25-34 minutes - Plan Summary Plan Summary: Once the sensitivities of the gram-negative rods in her urine are now she can probably be discharged back to the [facility] if her sensitivities allow her to take p.o. She did have some fever last night and would need to continue with the IV antibiotics until she is afebrile.
[2017-07-25] MEDS: MIRTAZAPINE 15 MG TABLET PO SCH (23:57)
[2017-07-26] MEDS: NORMAL SALINE 1000 ML 1,000 ML IV PRN ×3 (00:44→23:05)
[2017-07-26] MEDS: IPRATROPIUM/ALBUTEROL 0.5-2.5 MG/3 ML AMPUL NEB SCH ×4 (01:59→21:47)
[2017-07-26] MEDS: HEPARIN SOD (PORCINE) 5,000 UNIT/ML 1 ML SYRINGE SUBCUT SCH ×3 (05:25→23:04)
[2017-07-26 07:11] LABS: HEMATOCRIT 30.3 % (36.0-47.0); HEMOGLOBIN 9.6 g/dL (12.0-15.5); MEAN CORPUSCULAR HEMOGLOBIN 28.9 pg (27.0-33.4); MEAN CORPUSCULAR HGB CONC 31.8 g/dL (32.0-36.0); MEAN CORPUSCULAR VOLUME 91 fl (80-97); RED BLOOD COUNT 3.33 10^6/uL (3.72-5.28); RED CELL DISTRIBUTION WIDTH 14.2 % (11.5-14.0); WHITE BLOOD COUNT 15.4 10^3/uL (4.0-10.5)
[2017-07-26 08:16] LABS: PLATELET COUNT 130 10^3/uL (150-450)
[2017-07-26 08:20] LABS: ABSOLUTE LYMPHOCYTES# (MANUAL) 1.7 10^3/uL (0.5-4.7); ABSOLUTE MONOCYTES # (MANUAL) 0.9 10^3/uL (0.1-1.4); ABSOLUTE NEUTROPHILS# (MANUAL) 12.8 10^3/uL (1.7-8.2); BAND NEUTROPHILS % (MANUAL) 1 % (3-5); BASOPHILS % (MANUAL) 0 % (0-2); EOSINOPHILS % (MANUAL) 0 % (0-6); HYPOCHROMASIA 1+; LYMPHOCYTES % (MANUAL) 11 % (13-45); MONOCYTES % (MANUAL) 6 % (3-13); PLATELET CLUMPS PRESENT; POLYCHROMASIA SLIGHT; SEGMENTED NEUTROPHILS % (MAN) 82 % (42-78); TOTAL CELLS COUNTED 100; TOXIC GRANULATION 1+; TOXIC VACUOLATION PRESENT
[2017-07-26 08:31] LABS: ANION GAP 8 (5-19); BLOOD UREA NITROGEN 16 mg/dL (7-20); CALCIUM 8.7 mg/dL (8.4-10.2); CARBON DIOXIDE 22 mmol/L (22-30); CHLORIDE 115 mmol/L (98-107); GLUCOSE 81 mg/dL (75-110); POTASSIUM 4.1 mmol/L (3.6-5.0)
[2017-07-26] MEDS: GUAIFENESIN 600 MG TABLET.SA PO SCH ×2 (11:31→23:03)
[2017-07-26] MEDS: CEFEPIME 1 GM/D5W RTU 1 GM/50 ML RTUPB IV SCH (11:31)
--- NOTE | 2017-07-26 19:47 | PDOC PROGRESS REPORT ---
Subjective Progress Note for:: 07/26/17 Subjective:: Pleasant but confused. No specific complaints. Denies fevers, chills, CP, SOB Reason For Visit: PNEUMONIA Physical Exam Vital Signs: Temp Pulse Resp BP Pulse Ox 99.5 F 110 H 24 H 114/47 L 94 07/26/17 12:16 07/26/17 14:00 07/26/17 13:31 07/26/17 12:16 07/26/17 13:31 Intake & Output 07/25/17 07/26/17 07/27/17 06:59 06:59 06:59 Intake Total 1600 3200 621 Balance 1600 3200 621 Weight 55.3 kg 55.3 kg General appearance: PRESENT: no acute distress, thin, other - Resting comfortably in bed Head exam: PRESENT: atraumatic, normocephalic Mouth exam: PRESENT: moist Respiratory exam: PRESENT: clear to auscultation antelmo, unlabored Cardiovascular exam: PRESENT: RRR GI/Abdominal exam: PRESENT: soft. ABSENT: tenderness Results Laboratory Results: 07/26/17 06:47 07/26/17 08:00 07/26/17 07/26/17 07/26/17 06:47 06:47 08:00 WBC 15.4 H RBC 3.33 L Hgb 9.6 L Hct 30.3 L MCV 91 MCH 28.9 MCHC 31.8 L RDW 14.2 H Plt Count 130 L Seg Neutrophils % Not Reportable Lymphocytes % Not Reportable Monocytes % Not Reportable Eosinophils % Not Reportable Basophils % Not Reportable Absolute Neutrophils Not Reportable Absolute Lymphocytes Not Reportable Absolute Monocytes Not Reportable Absolute Eosinophils Not Reportable Absolute Basophils Not Reportable Sodium Cancelled 145.0 Potassium Cancelled 4.1 Chloride Cancelled 115 H Carbon Dioxide Cancelled 22 Anion Gap Cancelled 8 BUN Cancelled 16 Creatinine Cancelled 0.97 Est GFR ( Amer) Cancelled > 60 Est GFR (Non-Af Amer) Cancelled 54 L Glucose Cancelled 81 Calcium Cancelled 8.7 Blood cultures with no growth at 2 days, 07/23/17 Impressions: Chest X-Ray 07/23/17 20:54 IMPRESSION: Stable radiographic appearance of the chest. No evidence of acute pulmonary process. Assessment & Plan - Diagnosis (1) Sepsis Qualifiers: Sepsis type: sepsis due to unspecified organism Qualified Code(s): A41.9 - Sepsis, unspecified organism Is this a current diagnosis for this admission?: Yes Plan: Presented with hypotension tachycardia and fever. The hypotension has improved with IV fluids. CXR without PNA. Urine culture growing GNR, speciated to E. coli. Blood cultures NGTD at 2 days. - Currently on cefepime, will transition to Cipro PO on 07/27/17 to complete 10 day course given signs and symptoms of bacteremia without positive cultures - WBC trending down, continue to monitor - Likely stable for discharge tomorrow, d/c to [facility] (2) Hypotension Qualifiers: Hypotension type: unspecified hypotension type Qualified Code(s): I95.9 - Hypotension, unspecified Plan: Resolved with IVF, Vitals stable
[2017-07-26] MEDS: MIRTAZAPINE 15 MG TABLET PO SCH (23:03)
[2017-07-27] MEDS: IPRATROPIUM/ALBUTEROL 0.5-2.5 MG/3 ML AMPUL NEB SCH ×4 (01:59→21:04)
[2017-07-27] MEDS: HEPARIN SOD (PORCINE) 5,000 UNIT/ML 1 ML SYRINGE SUBCUT SCH ×2 (05:51→17:02)
[2017-07-27] MEDS: NORMAL SALINE 1000 ML 1,000 ML IV PRN (06:18)
[2017-07-27 06:59] LABS: ABSOLUTE EOSINOPHILS # (AUTO) 0.1 10^3/uL (0.0-0.6); ABSOLUTE LYMPHOCYTES (AUTO) 0.9 10^3/uL (0.5-4.7); ABSOLUTE MONOCYTES (AUTO) 1.1 10^3/uL (0.1-1.4); ABSOLUTE NEUT (AUTO) 9.4 10^3/uL (1.7-8.2); BASOPHILS % (AUTO) 0.3 % (0-2); HEMATOCRIT 30.3 % (36.0-47.0); HEMOGLOBIN 9.6 g/dL (12.0-15.5); LYMPHOCYTES % (AUTO) 7.4 % (13-45); MEAN CORPUSCULAR HGB CONC 31.8 g/dL (32.0-36.0); MEAN CORPUSCULAR VOLUME 91 fl (80-97); MONOCYTES % (AUTO) 9.8 % (3-13); PLATELET COUNT 151 10^3/uL (150-450); RED BLOOD COUNT 3.32 10^6/uL (3.72-5.28); RED CELL DISTRIBUTION WIDTH 14.1 % (11.5-14.0); SEGMENTED NEUTROPHILS % (AUTO) 81.5 % (42-78); TOTAL CELLS COUNTED % (AUTO) 100 %; WHITE BLOOD COUNT 11.5 10^3/uL (4.0-10.5)
[2017-07-27 07:23] LABS: ANION GAP 8 (5-19); BLOOD UREA NITROGEN 13 mg/dL (7-20); CARBON DIOXIDE 25 mmol/L (22-30); CHLORIDE 114 mmol/L (98-107); GLUCOSE 85 mg/dL (75-110); POTASSIUM 4.2 mmol/L (3.6-5.0); SODIUM 146.7 mmol/L (137-145)
[2017-07-27] MEDS ORDERED: CIPROFLOXACIN HCL 500 MG TABLET PO SCH (10:00)
[2017-07-27] MEDS: GUAIFENESIN 600 MG TABLET.SA PO SCH (17:02)
[2017-07-27] MEDS: CIPROFLOXACIN HCL 500 MG TABLET PO SCH (17:02)
--- NOTE | 2017-07-27 18:39 | PDOC PROGRESS REPORT ---
Subjective Progress Note for:: 07/27/17 Subjective:: Pleasant but confused. resting in bed. Did not wake up. Per RN report, a little more sedated today. Reason For Visit: PNEUMONIA Physical Exam Vital Signs: Temp Pulse Resp BP Pulse Ox 97.7 F 107 H 18 122/62 97 07/27/17 11:34 07/27/17 13:23 07/27/17 13:23 07/27/17 11:34 07/27/17 13:23 Intake & Output 07/26/17 07/27/17 07/28/17 06:59 06:59 06:59 Intake Total 3200 2121 Balance 3200 2121 Weight 55.3 kg 55.3 kg General appearance: PRESENT: no acute distress, thin, other - Resting in bed Mouth exam: PRESENT: moist Respiratory exam: PRESENT: unlabored Cardiovascular exam: PRESENT: irregular rhythm GI/Abdominal exam: PRESENT: soft. ABSENT: tenderness Rectal exam: PRESENT: tenderness Neurological exam: PRESENT: other - Unable to perform. Results Laboratory Results: 07/27/17 06:26 07/27/17 06:26 07/27/17 07/27/17 06:26 06:26 WBC 11.5 H RBC 3.32 L Hgb 9.6 L Hct 30.3 L MCV 91 MCH 29.0 MCHC 31.8 L RDW 14.1 H Plt Count 151 Seg Neutrophils % 81.5 H Lymphocytes % 7.4 L Monocytes % 9.8 Eosinophils % 1.0 Basophils % 0.3 Absolute Neutrophils 9.4 H Absolute Lymphocytes 0.9 Absolute Monocytes 1.1 Absolute Eosinophils 0.1 Absolute Basophils 0.0 Sodium 146.7 H Potassium 4.2 Chloride 114 H Carbon Dioxide 25 Anion Gap 8 BUN 13 Creatinine 1.00 Est GFR ( Amer) > 60 Est GFR (Non-Af Amer) 52 L Glucose 85 Calcium 9.0 Impressions: Chest X-Ray 07/23/17 20:54 IMPRESSION: Stable radiographic appearance of the chest. No evidence of acute pulmonary process. Assessment & Plan - Diagnosis (1) Sepsis Qualifiers: Sepsis type: sepsis due to unspecified organism Qualified Code(s): A41.9 - Sepsis, unspecified organism Is this a current diagnosis for this admission?: Yes Plan: Presented with hypotension tachycardia and fever. The hypotension has improved with IV fluids. CXR without PNA. Urine culture growing GNR, speciated to E. coli. Blood cultures NGTD at 2 days. - Previously on cefepime, transitioned to Cipro 250 PO BID on 07/27/17 to complete 10 day course given signs and symptoms of bacteremia without positive cultures - WBC trending down, continue to monitor - Likely stable for discharge tomorrow 07/28, d/c to [facility] (2) Hypotension Qualifiers: Hypotension type: unspecified hypotension type Qualified Code(s): I95.9 - Hypotension, unspecified Plan: Resolved with IVF, Vitals stable - Time Time Spent with patient: Less than 15 minutes Anticipated discharge: SNF Within: within 24 hours
[2017-07-28] MEDS: HEPARIN SOD (PORCINE) 5,000 UNIT/ML 1 ML SYRINGE SUBCUT SCH ×4 (01:41→23:27)
[2017-07-28] MEDS: NORMAL SALINE 1000 ML 1,000 ML IV PRN (01:42)
[2017-07-28] MEDS: MIRTAZAPINE 15 MG TABLET PO SCH ×2 (01:46→23:28)
[2017-07-28] MEDS: GUAIFENESIN 600 MG TABLET.SA PO SCH ×3 (01:46→23:30)
[2017-07-28] MEDS: CIPROFLOXACIN HCL 500 MG TABLET PO SCH ×3 (01:46→23:29)
[2017-07-28] MEDS: IPRATROPIUM/ALBUTEROL 0.5-2.5 MG/3 ML AMPUL NEB SCH ×4 (02:43→19:53)
[2017-07-28 05:39] LABS: HEMATOCRIT 29.9 % (36.0-47.0); HEMOGLOBIN 9.5 g/dL (12.0-15.5); MEAN CORPUSCULAR HEMOGLOBIN 29.3 pg (27.0-33.4); MEAN CORPUSCULAR HGB CONC 31.9 g/dL (32.0-36.0); MEAN CORPUSCULAR VOLUME 92 fl (80-97); PLATELET COUNT 154 10^3/uL (150-450); RED BLOOD COUNT 3.25 10^6/uL (3.72-5.28); RED CELL DISTRIBUTION WIDTH 14.7 % (11.5-14.0); WHITE BLOOD COUNT 9.2 10^3/uL (4.0-10.5)
[2017-07-28 06:01] LABS: ANION GAP 9 (5-19); BLOOD UREA NITROGEN 16 mg/dL (7-20); CALCIUM 9.2 mg/dL (8.4-10.2); CARBON DIOXIDE 21 mmol/L (22-30); CHLORIDE 119 mmol/L (98-107); GLUCOSE 86 mg/dL (75-110); POTASSIUM 4.5 mmol/L (3.6-5.0); SODIUM 148.9 mmol/L (137-145)
[2017-07-28] MEDS ORDERED: 1/2 NORMAL SALINE IV PRN ×2 (09:00)
[2017-07-28] MEDS ORDERED: NORMAL SALINE IV PRN ×2 (09:00)
[2017-07-28] MEDS: 1/2 NORMAL SALINE 1,000 ML IV PRN ×2 (10:28→20:54)
[2017-07-28] MEDS ORDERED: POLYETHYLENE GLYCOL 3350 POWDER 17 GM/1 PACKET PO PRN (11:17)
--- NOTE | 2017-07-28 13:18 | RADIOLOGY REPORT (SQ) ---
EXAM DESCRIPTION: CHEST SINGLE VIEW COMPLETED DATE/TIME: 07/28/2017 11:53 am REASON FOR STUDY: peristent O2 requirement, course breath sounds COMPARISON: 07/23/2017 EXAM PARAMETERS: NUMBER OF VIEWS: One view. TECHNIQUE: Single frontal radiographic view of the chest acquired. RADIATION DOSE: NA LIMITATIONS: None. FINDINGS: LUNGS AND PLEURA: The previously described left hemithorax volume loss is again identified . On the current study there is increasing density in left hemithorax which has the appearance of a left pleural effusion with associated airspace consolidation which could represent atelectatic change s or pneumonic consolidation. The previously described left apical pleural thickening appears stable . A small right pleural effusion is identified and I cannot exclude some associated atelectasis or i nfiltrate in the right lung base. MEDIASTINUM AND HILAR STRUCTURES: No masses. Contour normal. HEART AND VASCULAR STRUCTURES: The configuration of the heart and mediastinal structures is unchanged . Mild tracheal deviation appears unchanged. BONES: No acute findings. HARDWARE: None in the chest. OTHER: Some elevation of the left hemidiaphragm is again seen. IMPRESSION: Increasing density in the left hemithorax as noted above which has the appearance of a l eft pleural effusion with associated airspace consolidation which could represent atelectatic changes or pneumonic consolidation. Small right pleural effusion is identified and I cannot exclude some as sociated atelectasis or infiltrate in the right lung base. Other findings as noted above. TECHNICAL DOCUMENTATION: JOB ID: [id number] [employer]- All Rights Reserved
[2017-07-28] MEDS ORDERED: IPRATROPIUM/ALBUTEROL 0.5-2.5 MG/3 ML AMPUL NEB PRN (14:30)
[2017-07-28] MEDS ORDERED: FUROSEMIDE INJ/PF 20 MG/2 ML SDV IV ONE (14:30)
--- NOTE | 2017-07-28 19:54 | PDOC PROGRESS REPORT ---
Subjective Progress Note for:: 07/28/17 Subjective:: Pleasant but confused. Doing better today. More interactive. Answering questions. Denies pain. Reason For Visit: PNEUMONIA Physical Exam Vital Signs: Temp Pulse Resp BP Pulse Ox 98.2 F 105 H 16 134/77 H 99 07/28/17 15:05 07/28/17 15:05 07/28/17 15:05 07/28/17 15:05 07/28/17 15:05 Intake & Output 07/27/17 07/28/17 07/29/17 06:59 06:59 06:59 Intake Total 2120 1600 Balance 2120 1600 Weight 55.3 kg 55.3 kg General appearance: PRESENT: no acute distress, other - Resting comfortably in bed. More interactive. Head exam: PRESENT: normocephalic Mouth exam: PRESENT: moist Respiratory exam: PRESENT: unlabored Cardiovascular exam: PRESENT: irregular rhythm. ABSENT: systolic murmur GI/Abdominal exam: PRESENT: soft. ABSENT: tenderness Neurological exam: PRESENT: awake Results Laboratory Results: 07/28/17 05:20 07/28/17 05:20 07/28/17 07/28/17 05:20 05:20 WBC 9.2 RBC 3.25 L Hgb 9.5 L Hct 29.9 L MCV 92 MCH 29.3 MCHC 31.9 L RDW 14.7 H Plt Count 154 Sodium 148.9 H Potassium 4.5 Chloride 119 H Carbon Dioxide 21 L Anion Gap 9 BUN 16 Creatinine 1.16 Est GFR ( Amer) 53 L Est GFR (Non-Af Amer) 44 L Glucose 86 Calcium 9.2 Impressions: Chest X-Ray 07/28/17 00:00 IMPRESSION: Increasing density in the left hemithorax as noted above which has the appearance of a left pleural effusion with associated airspace consolidation which could represent atelectatic changes or pneumonic consolidation. Small right pleural effusion is identified and I cannot exclude some associated atelectasis or infiltrate in the right lung base. Other findings as noted above. Assessment & Plan - Diagnosis (1) Sepsis Qualifiers: Sepsis type: sepsis due to unspecified organism Qualified Code(s): A41.9 - Sepsis, unspecified organism Is this a current diagnosis for this admission?: Yes Plan: Presented with hypotension tachycardia and fever. The hypotension has improved with IV fluids. CXR without PNA. Urine culture growing GNR, speciated to E. coli. Blood cultures NGTD at 2 days. - Previously on cefepime, now on Cipro 250 PO BID since 07/27/17, complete 10 day course given signs and symptoms of bacteremia without positive cultures - WBC trending down, continue to monitor - Likely stable for discharge tomorrow 07/29, d/c to [facility] (2) Hypotension Qualifiers: Hypotension type: unspecified hypotension type Qualified Code(s): I95.9 - Hypotension, unspecified Plan: Resolved with IVF, Vitals stable - Time Time Spent with patient: Less than 15 minutes Anticipated discharge: SNF Within: within 24 hours
[2017-07-29] MEDS: IPRATROPIUM/ALBUTEROL 0.5-2.5 MG/3 ML AMPUL NEB SCH ×4 (01:47→20:28)
[2017-07-29] MEDS: HEPARIN SOD (PORCINE) 5,000 UNIT/ML 1 ML SYRINGE SUBCUT SCH ×2 (06:54→13:44)
[2017-07-29] MEDS: GUAIFENESIN 600 MG TABLET.SA PO SCH (09:33)
[2017-07-29] MEDS: CIPROFLOXACIN HCL 500 MG TABLET PO SCH (09:33)
[2017-07-29 10:05] LABS: ANION GAP 8 (5-19); BLOOD UREA NITROGEN 15 mg/dL (7-20); CARBON DIOXIDE 24 mmol/L (22-30); CHLORIDE 114 mmol/L (98-107); GLUCOSE 94 mg/dL (75-110); POTASSIUM 4.2 mmol/L (3.6-5.0); SODIUM 145.8 mmol/L (137-145)
--- NOTE | 2017-07-29 14:18 | PDOC TRANSFER SUMMARY ---
General - Admit/Disc Date/PCP Admission Date/Primary Care Provider: 07/24/17 00:30 OCTAVIO LARSEN MD Discharge Date: 07/29/17 - Discharge Diagnosis (1) E-coli UTI Is this a current diagnosis for this admission?: Yes Summary: Presented with hypotension tachycardia and fever. The hypotension has improved with IV fluids. CXR without PNA. Urine culture growing GNR, speciated to E. coli. Blood cultures NGTD. - Started on cefepime, now on Cipro 250 PO BID since 07/27/17, will need to complete 10 day course (08/03/17) - Improvement in mental status (baseline dementia), afebrile, HDS, and normal WBC on day of discharge - Will return to [facility] (2) Pleural effusion Is this a current diagnosis for this admission?: Yes Summary: During hospitalization required 3L NC. Ordered CXR on 07/28, which showed LEFT pleural effusion. Home Lasix held at admission. Received PO Lasix with improvement in symptoms. On day of discharge, patient's saturation was 90% on RA. Restarted 1L with improvement to 95%. Outpatient: - Continue 1L at rest and with exertion - Continue for daily PO lasix 20mg - Can re-evaluation O2 saturation off O2, goal >92% (3) Hypoxemia Is this a current diagnosis for this admission?: Yes Summary: Likely due to pleural effusion. O2 decreased from 3L to 1L on 07/29. Continue supplemental O2 at home. (4) Renal insufficiency Is this a current diagnosis for this admission?: Yes Summary: Mild insufficiency, Cr at baseline - Additional Information Resuscitation Status: Do Not Resuscitate Discharge Diet: Cardiac Discharge Activity: Supervised Activity Prescriptions: Ciprofloxacin HCl [Cipro 500 mg Tablet] 250 mg PO Q12 5 Days #10 tablet Furosemide [Lasix 20 mg Tablet] 20 mg PO QAM #30 tablet Ipratropium/Albuterol Sulfate [Duoneb 3 ml Ampul] 3 ml NEB Q12 PRN #14 [email or web address] PRN Reason: Shortness Of Breath Polyethylene Glycol 3350 [Miralax Powder 17 gm/Packet] 17 gm PO DAILYP PRN #30 powd.pack PRN Reason: Home Medications: Memantine HCl [Namenda 10 mg Tablet] 10 mg PO DAILY #0 tablet 06/29/16 Multivitamins W-Iron [Flintstones Chewable Multivit W/Fe Tab] 2 tab PO DAILY #0 tab.chew 01/14/16 Mirtazapine [Remeron] 7.5 mg PO QHS 07/23/17 Omeprazole Magnesium [Prilosec Otc] 20 mg PO DAILY 07/23/17 Acetaminophen [Tylenol 325 mg Tablet] 650 mg PO Q4HP PRN 07/25/17 Potassium Chloride [Klor-Con 10 Meq Tablet.sa] 20 meq PO DAILY 07/25/17 Ciprofloxacin HCl [Cipro 500 mg Tablet] 250 mg PO Q12 5 Days #10 tablet Furosemide [Lasix 20 mg Tablet] 20 mg PO QAM #30 tablet 07/29/17 Ipratropium/Albuterol Sulfate [Duoneb 3 ml Ampul] 3 ml NEB Q12 PRN #14 vial.neb 07/29/17 Polyethylene Glycol 3350 [Miralax Powder 17 gm/Packet] 17 gm PO DAILYP PRN #30 powd.pack 07/29/17 History of Present Illness Admission Date/PCP: 07/24/17 00:30 OCTAVIO LARSEN MD Patient complains of: SOB and fevers History of Present Illness: GEE ATWOOD is a 87 year old female who is a long-term retirement resident with advanced dementia and hypertension unable to provide history. She is referred to the emergency room after found short of breath with a temperature of 103.6. In the emergency room she is nonverbal but her workup reveals a left-sided infiltrate suggestive of pneumonia, leukocytosis and hypotension. She started on empiric antibiotics and for the hospitalist for admission Hospital Course Hospital Course: Per above. Physical Exam Vital Signs: Temp Pulse Resp BP Pulse Ox 98.0 F 107 H 18 137/67 H 98 07/29/17 12:00 07/29/17 12:00 07/29/17 12:00 07/29/17 12:00 07/29/17 12:00 Intake & Output 07/28/17 07/29/17 07/30/17 06:59 06:59 06:59 Intake Total 1600 750 Balance 1600 750 Weight 55.3 kg 55.3 kg General appearance: PRESENT: no acute distress, thin, other - Resting in bed, answers questions Head exam: PRESENT: atraumatic, normocephalic Mouth exam: PRESENT: moist Respiratory exam: PRESENT: decreased breath sounds - L>R, unlabored - On 1L Cardiovascular exam: PRESENT: irregular rhythm. ABSENT: tachycardia GI/Abdominal exam: PRESENT: normal bowel sounds. ABSENT: tenderness Neurological exam: PRESENT: alert, awake. ABSENT: oriented to person, oriented to place, oriented to time Psychiatric exam: PRESENT: other - Pleasantly demented Results Laboratory Results: 07/28/17 05:20 07/29/17 09:27 07/28/17 05:20 07/29/17 09:27 MCV 92 fl (80-97) 07/28/17 05:20 MCH 29.3 pg (27.0-33.4) 07/28/17 05:20 MCHC 31.9 g/dL (32.0-36.0) L 07/28/17 05:20 RDW 14.7 % (11.5-14.0) H 07/28/17 05:20 Seg Neutrophils % 81.5 % (42-78) H 07/27/17 06:26 Lymphocytes % 7.4 % (13-45) L 07/27/17 06:26 Monocytes % 9.8 % (3-13) 07/27/17 06:26 Eosinophils % 1.0 % (0-6) 07/27/17 06:26 Basophils % 0.3 % (0-2) 07/27/17 06:26 Absolute Neutrophils 9.4 10^3/uL (1.7-8.2) H 07/27/17 06:26 Absolute Lymphocytes 0.9 10^3/uL (0.5-4.7) 07/27/17 06:26 Absolute Monocytes 1.1 10^3/uL (0.1-1.4) 07/27/17 06:26 Absolute Eosinophils 0.1 10^3/uL (0.0-0.6) 07/27/17 06:26 Absolute Basophils 0.0 10^3/uL (0.0-0.2) 07/27/17 06:26 Chloride 114 mmol/L (98-107) H 07/29/17 09:27 Carbon Dioxide 24 mmol/L (22-30) 07/29/17 09:27 Anion Gap 8 (5-19) 07/29/17 09:27 Est GFR ( Amer) > 60 (>60) 07/29/17 09:27 Est GFR (Non-Af Amer) 54 (>60) L 07/29/17 09:27 Glucose 94 mg/dL (75-110) 07/29/17 09:27 Calcium 9.0 mg/dL (8.4-10.2) 07/29/17 09:27 Total Bilirubin 0.6 mg/dL (0.2-1.3) 07/23/17 21:01 AST 16 U/L (14-36) 07/23/17 21: ALT 18 U/L (9-52) 07/23/17 21: Alkaline Phosphatase 85 U/L (38-126) 07/23/17 21: Total Protein 6.8 g/dL (6.3-8.2) 07/23/17 21: Albumin 3.5 g/dL (3.5-5.0) 07/23/17 21:01 Urine Color YELLOW 07/23/17 21:01 Urine Appearance SLIGHTLY-CLOUDY 07/23/17 21:01 Urine pH 5.0 (5.0-9.0) 07/23/17 21:01 Ur Specific [place] 1.010 07/23/17 21:01 Urine Protein NEGATIVE mg/dL (NEGATIVE) 07/23/17 21:01 Urine Glucose (UA) NEGATIVE mg/dL (NEGATIVE) 07/23/17 21:01 Urine Ketones NEGATIVE mg/dL (NEGATIVE) 07/23/17 21:01 Urine Blood NEGATIVE (NEGATIVE) 07/23/17 21:01 Urine Nitrite NEGATIVE (NEGATIVE) 07/23/17 21:01 Ur Leukocyte Esterase NEGATIVE (NEGATIVE) 07/23/17 21:01 Urine WBC (Auto) 3 /HPF 07/23/17 21:01 Urine RBC (Auto) 1 /HPF 07/23/17 21:01 07/23/17 21:50 Blood Blood Culture - Final NO GROWTH IN 5 DAYS 07/23/17 21:01 Blood Blood Culture - Final NO GROWTH IN 5 DAYS Impressions: Chest X-Ray 07/28/17 00:00 IMPRESSION: Increasing density in the left hemithorax as noted above which has the appearance of a left pleural effusion with associated airspace consolidation which could represent atelectatic changes or pneumonic consolidation. Small right pleural effusion is identified and I cannot exclude some associated atelectasis or infiltrate in the right lung base. Other findings as noted above. Transfer Plan - Disposition Transfer Plan[facility] [place] - Time Spent with Patient Time spent with patient: Less than 30 Minutes Qualifiers PATEINT BEING DISCHARGED WITH ANY OF THE FOLLOWING DIAGNOSIS?: No Plan Time Spent: Greater than 30 Minutes
[2017-07-29 20:58] VITALS: BP 150/84
== END 2017-07-29 21:15 | DRG 871 ==
LOC: ER 20:45 → EH 07-24 00:30 → 5 07-24 05:15
PROVIDERS: ADMIT Internal Medicine; ATTEND Internal Medicine
PROC: 3E0F73Z Introduction of Anti-inflammatory into Respiratory Tract, Via Natural or Artificial Opening (ICD-10-PCS; principal; 2017-07-24)
DX: A41.9 Sepsis, unspecified organism (principal); J18.9 Pneumonia, unspecified organism; N39.0 Urinary tract infection, site not specified; B96.20 Unspecified Escherichia coli [E. coli] as the cause of diseases classified elsewhere; Z66 Do not resuscitate; R09.02 Hypoxemia; N28.9 Disorder of kidney and ureter, unspecified; F03.90 Unspecified dementia, unspecified severity, without behavioral disturbance, psychotic disturbance, mood disturbance, and anxiety; M19.90 Unspecified osteoarthritis, unspecified site; I10 Essential (primary) hypertension; E87.5 Hyperkalemia; N18.9 Chronic kidney disease, unspecified; I95.9 Hypotension, unspecified; Z79.899 Other long term (current) drug therapy
CPT/HCPCS: 36415; 71045; 80048; 80053; 81001; 85025; 85027; 87040; 87086; 87088; 87186; 87804; 94640; 94799; 96361; 96365; 96366; 96368; 99285; J0692; J1644; J1940; J2543; J3370; J3490; J7030; J7620